=== PATIENT | female | born 1985 | race Caucasian/White ===

== ENCOUNTER 2016-07-02 13:29 | Emergency (ER) | payer MEDICAID ==
[2016-07-02 14:40] LABS: BASOPHILS 0.4 % (0-2); EOSINOPHILS 1.1 % (0-7); HEMATOCRIT 41.4 % (36.0-48.0); HEMOGLOBIN 13.4 g/dL (12-16); IMMATURE GRANULOCYTES 0.2 % (0-5); LYMPHOCYTES 19.7 % (15-50); MCH 31.2 pg (26.0-34.0); MCHC 32.4 g/dL (31.0-37.0); MCV 96.3 fL (80.0-100.0); MEAN PLATELET VOLUME 9.5 fL (7.4-10.4); MONOCYTES 7.9 % (2-11); NEUTROPHILS 70.7 % (40-80); PLATELET COUNT 246 10x3/uL (130-400); RDW 14.4 % (11.5-14.5); WBC 8.5 10x3/uL (4.8-10.8)
[2016-07-02 14:48] LABS: HCG SERUM NEGATIVE (NEGATIVE)
[2016-07-02 15:12] LABS: APPEARANCE CLEAR (CLEAR); BILIRUBIN NEGATIVE (NEGATIVE); COLOR YELLOW (YELLOW); GLUCOSE NEGATIVE (NEGATIVE); KETONE NEGATIVE (NEGATIVE); LEUKOCYTE ESTERASE TRACE (NEGATIVE); NITRITE NEGATIVE (NEGATIVE); PROTEIN NEGATIVE (NEGATIVE); SPECIFIC GRAVITY 1.015 (1.005-1.020); UROBILINOGEN NORMAL (NORMAL)
[2016-07-02 15:17] LABS: BACTERIA FEW /hpf (NONE SEEN); EPITHELIAL CELLS 0-5 /hpf (0-5); RED CELLS - URINE OCC /hpf (0-5)
[2016-07-02 15:18] LABS: UDS - AMPHET NEGATIVE QUAL (NEGATIVE); UDS - BARB NEGATIVE QUAL (NEGATIVE); UDS - BENZO NEGATIVE QUAL (NEGATIVE); UDS - COCAINE NEGATIVE QUAL (NEGATIVE); UDS - METH NEGATIVE QUAL (NEGATIVE); UDS - OPIATE NEGATIVE QUAL (NEGATIVE); UDS - PCP NEGATIVE QUAL (NEGATIVE); UDS - THC POSITIVE QUAL (NEGATIVE)
[2016-07-02 15:45] LABS: ALBUMIN 3.5 g/dL (3.4-5.0); ALKALINE PHOSPHATASE 90 U/L (46-116); ALT (SGPT) 17 U/L (10-68); BILIRUBIN - TOTAL 0.63 mg/dL (0.2-1.3); CALC OSMOLALITY 282 mosm/kg (275-300); CALCIUM 9.2 mg/dL (8.5-10.1); CARBON DIOXIDE 28.8 mmol/L (21.0-32.0); CHLORIDE - SERUM 107 mmol/L (98-107); CREATININE - SERUM 0.9 mg/dL (0.6-1.3); GLUCOSE 96 mg/dL (74-106); POTASSIUM - SERUM 4.8 mmol/L (3.5-5.1); PROTEIN - SERUM 6.5 g/dL (6.4-8.2); SODIUM 142 mmol/L (136-145); UREA NITROGEN 12 mg/dL (7-18); eGFR NON AFRICAN AMERICAN 76 mL/min (90-120)
== END 2016-07-03 00:50 | disposition home or self-care (01) ==
LOC: D.ER 13:29
PROVIDERS: Emergency Medicine
DX: R45.851 Suicidal ideations (principal); F32.9 Major depressive disorder, single episode, unspecified; F20.9 Schizophrenia, unspecified

== ENCOUNTER 2016-11-15 09:55 | Emergency (ER) | payer MEDICAID ==
[2016-11-15 11:00] LABS: APPEARANCE HAZY (CLEAR); COLOR ORANGE (YELLOW)
[2016-11-15 11:01] LABS: BILIRUBIN NEGATIVE (NEGATIVE); GLUCOSE NEGATIVE (NEGATIVE); KETONE NEGATIVE (NEGATIVE); LEUKOCYTE ESTERASE 1+ (NEGATIVE); NITRITE POSITIVE (NEGATIVE); PROTEIN NEGATIVE (NEGATIVE); SPECIFIC GRAVITY 1.005 (1.005-1.020); UROBILINOGEN NORMAL (NORMAL)
[2016-11-15 11:02] LABS: BACTERIA FEW /hpf (NONE SEEN); EPITHELIAL CELLS 0-5 /hpf (0-5); RED CELLS - URINE 0-5 /hpf (0-5); YEAST <1+ /hpf (NONE SEEN)
== END 2016-11-15 11:30 | disposition home or self-care (01) ==
LOC: D.ER 09:55
PROVIDERS: Emergency Medicine
DX: N39.0 Urinary tract infection, site not specified (principal); F17.200 Nicotine dependence, unspecified, uncomplicated

== ENCOUNTER 2017-03-14 21:08 | Emergency (ER) | payer MEDICAID ==
[2017-03-14 21:52] LABS: BASOPHILS 0.5 % (0-2); EOSINOPHILS 1.9 % (0-7); HEMATOCRIT 37.6 % (36.0-48.0); HEMOGLOBIN 12.2 g/dL (12-16); IMMATURE GRANULOCYTES 0.1 % (0-5); LYMPHOCYTES 31.4 % (15-50); MCH 31.9 pg (26.0-34.0); MCHC 32.4 g/dL (31.0-37.0); MCV 98.2 fL (80.0-100.0); MEAN PLATELET VOLUME 9.1 fL (7.4-10.4); MONOCYTES 9.9 % (2-11); NEUTROPHILS 56.2 % (40-80); PLATELET COUNT 249 10x3/uL (130-400); RBC 3.83 10x6/uL (4.00-5.40); RDW 12.7 % (11.5-14.5); WBC 7.8 10x3/uL (4.8-10.8)
[2017-03-14 22:06] LABS: ALBUMIN 3.5 g/dL (3.4-5.0); ALKALINE PHOSPHATASE 75 U/L (46-116); ALT (SGPT) 28 U/L (10-68); BILIRUBIN - TOTAL 0.59 mg/dL (0.2-1.3); CALC OSMOLALITY 283 mosm/kg (275-300); CALCIUM 9.2 mg/dL (8.5-10.1); CARBON DIOXIDE 27.6 mmol/L (21.0-32.0); CHLORIDE - SERUM 107 mmol/L (98-107); CREATININE - SERUM 0.8 mg/dL (0.6-1.3); GLUCOSE 97 mg/dL (74-106); POTASSIUM - SERUM 3.8 mmol/L (3.5-5.1); PROTEIN - SERUM 6.3 g/dL (6.4-8.2); SODIUM 142 mmol/L (136-145); UREA NITROGEN 16 mg/dL (7-18); eGFR NON AFRICAN AMERICAN 87 mL/min (90-120)
== END 2017-03-14 22:34 | disposition home or self-care (01) ==
LOC: D.ER 21:08
PROVIDERS: Nurse Practitioner Family
DX: L02.414 Cutaneous abscess of left upper limb (principal); R60.0 Localized edema; F15.20 Other stimulant dependence, uncomplicated; F20.89 Other schizophrenia; F17.200 Nicotine dependence, unspecified, uncomplicated

== ENCOUNTER 2017-04-01 06:13 | Emergency (ER) | payer SELFPAY ==
[2017-04-01 06:41] LABS: HCG URINE NEGATIVE (NEGATIVE)
[2017-04-01 06:47] LABS: UDS - AMPHET POSITIVE QUAL (NEGATIVE); UDS - BARB NEGATIVE QUAL (NEGATIVE); UDS - BENZO NEGATIVE QUAL (NEGATIVE); UDS - COCAINE NEGATIVE QUAL (NEGATIVE); UDS - OPIATE NEGATIVE QUAL (NEGATIVE); UDS - PCP NEGATIVE QUAL (NEGATIVE); UDS - THC POSITIVE QUAL (NEGATIVE)
[2017-04-01 06:48] LABS: BASOPHILS 0.3 % (0-2); EOSINOPHILS 1.5 % (0-7); HEMATOCRIT 38.5 % (36.0-48.0); HEMOGLOBIN 12.8 g/dL (12-16); IMMATURE GRANULOCYTES 0.2 % (0-5); LYMPHOCYTES 26.6 % (15-50); MCH 32.1 pg (26.0-34.0); MCHC 33.2 g/dL (31.0-37.0); MCV 96.5 fL (80.0-100.0); MEAN PLATELET VOLUME 8.9 fL (7.4-10.4); MONOCYTES 13.8 % (2-11); NEUTROPHILS 57.6 % (40-80); PLATELET COUNT 238 10x3/uL (130-400); RBC 3.99 10x6/uL (4.00-5.40); RDW 12.8 % (11.5-14.5); WBC 6.5 10x3/uL (4.8-10.8)
[2017-04-01 07:09] LABS: ALKALINE PHOSPHATASE 86 U/L (46-116); ALT (SGPT) 39 U/L (10-68); BILIRUBIN - TOTAL 0.71 mg/dL (0.2-1.3); CALC OSMOLALITY 281 mosm/kg (275-300); CALCIUM 9.1 mg/dL (8.5-10.1); CARBON DIOXIDE 26.8 mmol/L (21.0-32.0); CHLORIDE - SERUM 106 mmol/L (98-107); CREATININE - SERUM 0.9 mg/dL (0.6-1.3); GLUCOSE 79 mg/dL (74-106); POTASSIUM - SERUM 4.1 mmol/L (3.5-5.1); SODIUM 141 mmol/L (136-145); UREA NITROGEN 18 mg/dL (7-18); eGFR NON AFRICAN AMERICAN 76 mL/min (90-120)
[2017-04-01 07:26] LABS: APPEARANCE HAZY (CLEAR); BACTERIA FEW /hpf (NONE SEEN); BILIRUBIN NEGATIVE (NEGATIVE); COLOR YELLOW (YELLOW); EPITHELIAL CELLS 0-5 /hpf (0-5); GLUCOSE NEGATIVE (NEGATIVE); KETONE NEGATIVE (NEGATIVE); MUCUS >1+ /lpf (NONE SEEN); NITRITE NEGATIVE (NEGATIVE); PROTEIN NEGATIVE (NEGATIVE); RED CELLS - URINE OCC /hpf (0-5); SPECIFIC GRAVITY 1.015 (1.005-1.020); UROBILINOGEN NORMAL (NORMAL); WHITE CELLS - URINE OCC /hpf (0-5)
== END 2017-04-01 16:43 | disposition short-term general hospital (02) ==
LOC: D.ER 06:13
PROVIDERS: Family Medicine
DX: R45.851 Suicidal ideations (principal); F33.9 Major depressive disorder, recurrent, unspecified; F19.10 Other psychoactive substance abuse, uncomplicated; F17.200 Nicotine dependence, unspecified, uncomplicated; Z86.59 Personal history of other mental and behavioral disorders

== ENCOUNTER 2017-04-07 09:47 | Emergency (ER) | payer MEDICARE | END 2017-04-07 12:03 | disposition home or self-care (01) | LOC: D.ER 09:47 | DX: H10.31 Unspecified acute conjunctivitis, right eye (principal); F17.200 Nicotine dependence, unspecified, uncomplicated ==

== ENCOUNTER 2017-04-26 14:54 | Emergency (ER) | payer SELFPAY | END 2017-04-26 17:56 | disposition home or self-care (01) | LOC: D.ER 14:54 | DX: L03.116 Cellulitis of left lower limb (principal); F17.200 Nicotine dependence, unspecified, uncomplicated ==

== ENCOUNTER 2017-05-05 14:05 | Emergency (ER) | payer SELFPAY | END 2017-05-05 16:18 | disposition home or self-care (01) | LOC: D.ER 14:05 | DX: Z86.59 Personal history of other mental and behavioral disorders (principal); F42.9 Obsessive-compulsive disorder, unspecified; F17.200 Nicotine dependence, unspecified, uncomplicated ==

== ENCOUNTER 2017-05-16 21:01 | Emergency (ER) | payer SELFPAY | END 2017-05-16 21:41 | disposition home or self-care (01) | LOC: D.ER 21:01 | DX: L03.116 Cellulitis of left lower limb (principal); F42.9 Obsessive-compulsive disorder, unspecified; F17.200 Nicotine dependence, unspecified, uncomplicated ==

== ENCOUNTER 2017-05-26 18:07 | Emergency (ER) | payer SELFPAY ==
[2017-05-26 19:22] LABS: BASOPHILS 0.3 % (0-2); EOSINOPHILS 0.2 % (0-7); HEMATOCRIT 37.6 % (36.0-48.0); HEMOGLOBIN 12.9 g/dL (12-16); IMMATURE GRANULOCYTES 0.1 % (0-5); LYMPHOCYTES 23.1 % (15-50); MCH 32.1 pg (26.0-34.0); MCHC 34.3 g/dL (31.0-37.0); MCV 93.5 fL (80.0-100.0); MEAN PLATELET VOLUME 9.5 fL (7.4-10.4); MONOCYTES 12.4 % (2-11); NEUTROPHILS 63.9 % (40-80); PLATELET COUNT 265 10x3/uL (130-400); RBC 4.02 10x6/uL (4.00-5.40); RDW 12.6 % (11.5-14.5); WBC 9.4 10x3/uL (4.8-10.8)
[2017-05-26 19:30] LABS: ALBUMIN 4.4 g/dL (3.4-5.0); ANION GAP 14.2 mmol/L (8-16); BILIRUBIN - TOTAL 1.6 mg/dL (0.2-1.3); CALCIUM 9.7 mg/dL (8.5-10.1); CARBON DIOXIDE 23.9 mmol/L (21.0-32.0); POTASSIUM - SERUM 4.1 mmol/L (3.5-5.1); PROTEIN - SERUM 7.8 g/dL (6.4-8.2)
[2017-05-26 19:33] LABS: HCG SERUM NEGATIVE (NEGATIVE)
[2017-05-26 19:44] LABS: APPEARANCE TURBID (CLEAR); BILIRUBIN NEGATIVE (NEGATIVE); COLOR YELLOW (YELLOW); GLUCOSE NEGATIVE (NEGATIVE); KETONE MODERATE mg/dL (NEGATIVE); NITRITE NEGATIVE (NEGATIVE); PROTEIN NEGATIVE (NEGATIVE); SPECIFIC GRAVITY 1.025 (1.005-1.020); UDS - AMPHET POSITIVE QUAL (NEGATIVE); UDS - BARB NEGATIVE QUAL (NEGATIVE); UDS - BENZO NEGATIVE QUAL (NEGATIVE); UDS - COCAINE NEGATIVE QUAL (NEGATIVE); UDS - OPIATE NEGATIVE QUAL (NEGATIVE); UDS - PCP NEGATIVE QUAL (NEGATIVE); UDS - THC POSITIVE QUAL (NEGATIVE); UROBILINOGEN NORMAL (NORMAL)
[2017-05-26 19:48] LABS: AMORPHOUS SEDIMENT >1+ /lpf (NONE SEEN); BACTERIA FEW /hpf (NONE SEEN); RED CELLS - URINE OCC /hpf (0-5); WHITE CELLS - URINE OCC /hpf (0-5)
== END 2017-05-27 00:53 | disposition home or self-care (01) ==
LOC: D.ER 18:07
PROVIDERS: Family Medicine; Nurse Practitioner Family
DX: T43.622A Poisoning by amphetamines, intentional self-harm, initial encounter (principal); Y92.89 Other specified places as the place of occurrence of the external cause; Z86.59 Personal history of other mental and behavioral disorders; F17.200 Nicotine dependence, unspecified, uncomplicated

== ENCOUNTER 2017-06-12 12:51 | Emergency (ER) | payer MEDICARE | END 2017-06-12 15:20 | disposition home or self-care (01) | LOC: D.ER 12:51 | DX: S00.33XA Contusion of nose, initial encounter (principal); Y04.2XXA Assault by strike against or bumped into by another person, initial encounter; Y93.89 Activity, other specified; Y92.9 Unspecified place or not applicable; Z86.59 Personal history of other mental and behavioral disorders ==

== ENCOUNTER 2017-07-08 20:34 | Emergency (ER) | payer MEDICARE | END 2017-07-08 23:59 | disposition home or self-care (01) | LOC: D.ER 20:34 | DX: M79.1 Myalgia (principal); Y04.2XXA Assault by strike against or bumped into by another person, initial encounter; Y93.89 Activity, other specified; Y92.019 Unspecified place in single-family (private) house as the place of occurrence of the external cause ==

== ENCOUNTER 2017-09-05 14:33 | Emergency (ER) | payer MEDICARE ==
[~2017-09-05] VITALS: Ht 172.7 cm; Wt 71.8 kg
[2017-09-05 14:40] VITALS: Ht 172.7 cm; Wt 71.8 kg
[2017-09-05] MEDS ORDERED: DOXYCYCLINE HY100 M2 PO (16:26)
[2017-09-05 16:56] VITALS: BP 105/61
== END 2017-09-05 16:57 | disposition home or self-care (01) ==
LOC: EDBD 14:33 → D.ER 14:33
DX: L02.01 Cutaneous abscess of face (principal); F17.200 Nicotine dependence, unspecified, uncomplicated

== ENCOUNTER 2017-11-24 21:44 | Emergency (ER) | payer MEDICARE ==
[~2017-11-24] VITALS: Ht 172.7 cm; Wt 104.5 kg
[~2017-11-24 21:44] MED LIST: DOXYCYCLINE HY100 M2 PO
[2017-11-24 21:54] VITALS: Ht 172.7 cm; Wt 104.5 kg
[2017-11-24 22:20] LABS: APPEARANCE HAZY (CLEAR); COLOR YELLOW (YELLOW)
[2017-11-24 22:21] LABS: BACTERIA FEW /hpf (NONE SEEN); BILIRUBIN NEGATIVE (NEGATIVE); EPITHELIAL CELLS 0-5 /hpf (0-5); GLUCOSE NEGATIVE (NEGATIVE); KETONE NEGATIVE (NEGATIVE); NITRITE NEGATIVE (NEGATIVE); PROTEIN NEGATIVE (NEGATIVE); RED CELLS - URINE 0-5 /hpf (0-5); SPECIFIC GRAVITY 1.025 (1.005-1.020); UROBILINOGEN NORMAL (NORMAL); WHITE CELLS - URINE OCC /hpf (0-5)
[2017-11-24 22:22] LABS: UDS - AMPHET POSITIVE QUAL (NEGATIVE); UDS - BARB NEGATIVE QUAL (NEGATIVE); UDS - BENZO POSITIVE QUAL (NEGATIVE); UDS - COCAINE NEGATIVE QUAL (NEGATIVE); UDS - OPIATE NEGATIVE QUAL (NEGATIVE); UDS - PCP NEGATIVE QUAL (NEGATIVE); UDS - THC POSITIVE QUAL (NEGATIVE)
[2017-11-24 22:42] LABS: BASOPHILS 0.5 % (0-2); EOSINOPHILS 2.3 % (0-7); HEMATOCRIT 39.4 % (36.0-48.0); HEMOGLOBIN 13.4 g/dL (12-16); IMMATURE GRANULOCYTES 0.1 % (0-5); LYMPHOCYTES 24.9 % (15-50); MCH 32.4 pg (26.0-34.0); MCV 95.2 fL (80.0-100.0); MEAN PLATELET VOLUME 9.4 fL (7.4-10.4); MONOCYTES 11.7 % (2-11); NEUTROPHILS 60.5 % (40-80); PLATELET COUNT 247 10x3/uL (130-400); RBC 4.14 10x6/uL (4.00-5.40); RDW 13.1 % (11.5-14.5); WBC 7.4 10x3/uL (4.8-10.8)
[2017-11-24 22:56] LABS: ALBUMIN 3.8 g/dL (3.4-5.0); ALKALINE PHOSPHATASE 83 U/L (46-116); ALT (SGPT) 24 U/L (10-68); BILIRUBIN - TOTAL 0.39 mg/dL (0.2-1.3); CALC OSMOLALITY 274 mosm/kg (275-300); CALCIUM 9.3 mg/dL (8.5-10.1); CARBON DIOXIDE 30.7 mmol/L (21.0-32.0); CHLORIDE - SERUM 104 mmol/L (98-107); CREATININE - SERUM 0.9 mg/dL (0.6-1.3); GLUCOSE 100 mg/dL (74-106); POTASSIUM - SERUM 4.2 mmol/L (3.5-5.1); PROTEIN - SERUM 7.1 g/dL (6.4-8.2); SODIUM 138 mmol/L (136-145); UREA NITROGEN 11 mg/dL (7-18); eGFR NON AFRICAN AMERICAN 76 mL/min (90-120)
[2017-11-24 23:05] LABS: THYROID STIMULATING HORMONE 0.28 uIU/mL (0.36-3.74)
[2017-11-25 02:35] VITALS: BP 137/91
== END 2017-11-25 02:36 | disposition other institution (70) ==
LOC: D.ER 21:44
PROVIDERS: Family Medicine
DX: F23 Brief psychotic disorder (principal); F19.10 Other psychoactive substance abuse, uncomplicated; Z86.59 Personal history of other mental and behavioral disorders; F17.200 Nicotine dependence, unspecified, uncomplicated

== ENCOUNTER 2018-01-11 23:47 | Emergency (ER) | payer MEDICARE ==
[~2018-01-11] VITALS: Ht 172.7 cm; Wt 75.0 kg
[2018-01-11 23:53] VITALS: Ht 172.7 cm; Wt 75.0 kg
[2018-01-11] MEDS ORDERED: KLONIPIN (23:54)
[2018-01-11] MEDS ORDERED: HALDOL (23:54)
[2018-01-11] MEDS ORDERED: COGENTIN (23:54)
[2018-01-11] MEDS ORDERED: DEPAKOTE (23:54)
[2018-01-12 00:50] LABS: HCG URINE NEGATIVE (NEGATIVE)
[2018-01-12 00:57] LABS: APPEARANCE CLEAR (CLEAR); BILIRUBIN NEGATIVE (NEGATIVE); COLOR YELLOW (YELLOW); GLUCOSE NEGATIVE (NEGATIVE); KETONE NEGATIVE (NEGATIVE); NITRITE NEGATIVE (NEGATIVE); PROTEIN TRACE mg/dL (NEGATIVE); UROBILINOGEN NORMAL (NORMAL)
[2018-01-12 01:00] LABS: EPITHELIAL CELLS 0-5 /hpf (0-5); RED CELLS - URINE 0-5 /hpf (0-5); WHITE CELLS - URINE 0-5 /hpf (0-5)
[2018-01-12 01:01] LABS: BACTERIA FEW /hpf (NONE SEEN)
[2018-01-12] MEDS ORDERED: FLAGYL500 MG PO (01:21)
[2018-01-12 01:39] VITALS: BP 132/91
[2018-01-16 16:07] LABS: CHLAMYDIA TRACHOMATIS, NAA Negative (Negative)
== END 2018-01-12 01:39 | disposition home or self-care (01) ==
LOC: D.ER 23:47
PROVIDERS: Family Medicine
DX: N76.0 Acute vaginitis (principal); B96.89 Other specified bacterial agents as the cause of diseases classified elsewhere; Z86.59 Personal history of other mental and behavioral disorders; F17.200 Nicotine dependence, unspecified, uncomplicated

== ENCOUNTER 2018-01-20 16:26 | Emergency (ER) | payer MEDICARE ==
[~2018-01-20] VITALS: Ht 172.7 cm; Wt 79.5 kg
[~2018-01-20 16:26] MED LIST changes: +COGENTIN; +DEPAKOTE; +FLAGYL500 MG PO; +HALDOL; +KLONIPIN
[2018-01-20 16:33] VITALS: BP 125/76; Ht 172.7 cm; Wt 79.5 kg
[2018-01-20 17:41] LABS: BASOPHILS 0.7 % (0-2); EOSINOPHILS 1.1 % (0-7); HEMATOCRIT 42.3 % (36.0-48.0); HEMOGLOBIN 14.2 g/dL (12-16); IMMATURE GRANULOCYTES 0.1 % (0-5); MCH 31.5 pg (26.0-34.0); MCHC 33.6 g/dL (31.0-37.0); MCV 93.8 fL (80.0-100.0); MEAN PLATELET VOLUME 9.3 fL (7.4-10.4); MONOCYTES 9.6 % (2-11); NEUTROPHILS 61.5 % (40-80); PLATELET COUNT 268 10x3/uL (130-400); RBC 4.51 10x6/uL (4.00-5.40); RDW 12.4 % (11.5-14.5)
== END 2018-01-20 19:05 | disposition left against medical advice (07) ==
LOC: D.ER 16:26
PROVIDERS: Emergency Medicine
DX: R05 Cough (principal)

== ENCOUNTER 2018-02-24 17:12 | Inpatient (IN) | payer MEDICARE ==
[~2018-02-24] VITALS: Ht 170.2 cm; Wt 82.0 kg
--- NOTE | 2018-02-24 17:29 | NUR ---
SPOKE WITH POISON CONTROL - RECOMMEND THAT WE USE CHARCOAL AT THE ER PROVIDER'S DISCRETION - HALDOL CAN CAUSE SEIZURES AND ARRYTHMIA WELL SEDATION IF SHE TOOK THE AMOUNT REPORTED.
[2018-02-24 17:49] LABS: UDS - AMPHET POSITIVE QUAL (NEGATIVE); UDS - BARB NEGATIVE QUAL (NEGATIVE); UDS - BENZO NEGATIVE QUAL (NEGATIVE); UDS - COCAINE NEGATIVE QUAL (NEGATIVE); UDS - OPIATE NEGATIVE QUAL (NEGATIVE); UDS - PCP NEGATIVE QUAL (NEGATIVE); UDS - THC POSITIVE QUAL (NEGATIVE)
[2018-02-24 17:59] LABS: BASOPHILS 0.3 % (0-2); EOSINOPHILS 1.5 % (0-7); HEMATOCRIT 43.5 % (36.0-48.0); HEMOGLOBIN 14.4 g/dL (12-16); IMMATURE GRANULOCYTES 0.1 % (0-5); LYMPHOCYTES 18.3 % (15-50); MCHC 33.1 g/dL (31.0-37.0); MCV 93.5 fL (80.0-100.0); MEAN PLATELET VOLUME 9.2 fL (7.4-10.4); MONOCYTES 5.8 % (2-11); PLATELET COUNT 266 10x3/uL (130-400); RBC 4.65 10x6/uL (4.00-5.40); RDW 12.6 % (11.5-14.5); WBC 7.5 10x3/uL (4.8-10.8)
[2018-02-24 18:25] LABS: ALBUMIN 3.8 g/dL (3.4-5.0); ALKALINE PHOSPHATASE 92 U/L (46-116); ALT (SGPT) 22 U/L (10-68); BILIRUBIN - TOTAL 0.72 mg/dL (0.2-1.3); CALC OSMOLALITY 275 mosm/kg (275-300); CALCIUM 9.3 mg/dL (8.5-10.1); CARBON DIOXIDE 27.1 mmol/L (21.0-32.0); CHLORIDE - SERUM 102 mmol/L (98-107); CREATININE - SERUM 0.8 mg/dL (0.6-1.3); GLUCOSE 79 mg/dL (74-106); POTASSIUM - SERUM 3.6 mmol/L (3.5-5.1); PROTEIN - SERUM 7.6 g/dL (6.4-8.2); SODIUM 138 mmol/L (136-145); UREA NITROGEN 14 mg/dL (7-18); eGFR NON AFRICAN AMERICAN 86 mL/min (90-120)
[2018-02-24 18:28] LABS: MAGNESIUM - SERUM 1.8 mg/dL (1.8-2.4)
[2018-02-24 18:39] LABS: APPEARANCE CLEAR (CLEAR); BILIRUBIN NEGATIVE (NEGATIVE); COLOR YELLOW (YELLOW); GLUCOSE NEGATIVE (NEGATIVE); KETONE NEGATIVE (NEGATIVE); NITRITE NEGATIVE (NEGATIVE); PROTEIN NEGATIVE (NEGATIVE); UROBILINOGEN NORMAL (NORMAL)
[2018-02-24 19:30] VITALS: BP 103/67
[2018-02-24 20:30] VITALS: BP 101/61
[2018-02-24 21:33] VITALS: BP 113/71; BMI 27.3
--- NOTE | 2018-02-24 21:50 | NUR ---
RECEIVED PT FROM THE ED. PT IS ALERT AND ORIENTED, COMPLAINS OF BEING "VERY SLEEPY". ANSWERS QUESTIONS APPROPRIATELY. DR ARAIZA PRESENT IN ROOM ASSESSING PT. INITIAL ASSESSMENT COMPLETED, SEE FLOWSHEET. NO SIGNS OF ACUTE DISTRESS. VSS. WILL CONTINUE TO MONITOR.
[2018-02-24 22:00] VITALS: BP 113/71
[2018-02-24 23:00] VITALS: BP 115/70
--- NOTE | 2018-02-24 23:15 | NUR ---
PT WOKE UP AND NEEDED TO USE THE BATHROOM. BEDSIDE COMMODE WAS PROVIDED. PT GAIT WAS STEADY, PT HAD NO COMPLIANTS WITH GETTING UP AND MOVING. REASSESSMENT COMPLETED AT THIS TIME. WILL CONTINUE TO MONITOR.
[2018-02-25] VITALS (23 sets, daily range): BP systolic 94–120; BP diastolic 52–85
--- NOTE | 2018-02-25 01:16 | NUR ---
PT IS RESTING IN BED WITH EYES CLOSED AT THIS TIME. NO ACUTE CHANGES NOTED. NO SIGNS OF ACUTE DISTRESS. WILL CONTINUE TO MONITOR.
--- NOTE | 2018-02-25 03:16 | NUR ---
PT RESTING IN BED WITH EYES CLOSED AT THIS TIME. REASSESSMENT COMPLETED, SEE FLOWSHEET. NO SIGNS OF ACUTE CHANGES. NO SIGNS OF ACUTE DISTRESS. WILL CONTINUE TO MONITOR.
[2018-02-25 04:13] LABS: BASOPHILS 0.5 % (0-2); EOSINOPHILS 2.5 % (0-7); HEMOGLOBIN 12.1 g/dL (12-16); LYMPHOCYTES 36.9 % (15-50); MCH 30.6 pg (26.0-34.0); MCHC 32.7 g/dL (31.0-37.0); MCV 93.4 fL (80.0-100.0); MEAN PLATELET VOLUME 9.2 fL (7.4-10.4); MONOCYTES 8.7 % (2-11); NEUTROPHILS 51.4 % (40-80); PLATELET COUNT 216 10x3/uL (130-400); RBC 3.96 10x6/uL (4.00-5.40); RDW 12.5 % (11.5-14.5); WBC 5.7 10x3/uL (4.8-10.8)
[2018-02-25 04:30] LABS: ALKALINE PHOSPHATASE 74 U/L (46-116); ALT (SGPT) 17 U/L (10-68); BILIRUBIN - TOTAL 0.78 mg/dL (0.2-1.3); CALCIUM 8.3 mg/dL (8.5-10.1); CARBON DIOXIDE 24.8 mmol/L (21.0-32.0); CHLORIDE - SERUM 107 mmol/L (98-107); CREATININE - SERUM 0.6 mg/dL (0.6-1.3); GLUCOSE 86 mg/dL (74-106); MAGNESIUM - SERUM 1.8 mg/dL (1.8-2.4); POTASSIUM - SERUM 3.9 mmol/L (3.5-5.1); PROTEIN - SERUM 5.8 g/dL (6.4-8.2); SODIUM 139 mmol/L (136-145); eGFR NON AFRICAN AMERICAN > 90 mL/min (90-120)
[2018-02-25 04:36] LABS: ALBUMIN 2.8 g/dL (3.4-5.0); CALC OSMOLALITY 275 mosm/kg (275-300); UREA NITROGEN 10 mg/dL (7-18)
--- NOTE | 2018-02-25 05:12 | NUR ---
PT IS RESTING IN BED WITH EYES CLOSED. NO ACUTE CHANGES NOTED. NO SIGNS OF ACUTE DISTRESS. WILL CONTINUE TO MONITOR.
--- NOTE | 2018-02-25 07:00 | NUR ---
PATIENT RESTING IN BED C CALL COHEN IN REACH. RESPIRATIONS EVEN AND UNLABORED. VSS. PT WAKES TO VOICE. ALERT AND ORIENTED WHEN WOKEN. NS INFUSING AT 125ML/HR VIA LEFT AC. NORMAL SINUS RHYTHM. WILL CONTINUE TO MONITOR.
--- NOTE | 2018-02-25 08:24 | NUR ---
WORKFORCE MANAGEMENT COORDINATORCLERK CASEY FAXED FACESHEET AND CONSULT TO DR. WEI.
--- NOTE | 2018-02-25 09:56 | NUR ---
PATIENT RESTING IN BED C CALL COHEN IN REACH. VSS. PT TOOK OFF BP CUFF. NURSE PLACED BACK ON. WILL CONTINUE TO MONITOR
--- NOTE | 2018-02-25 11:00 | NUR ---
POISON CONTROL CALLED TO CHECK ON PATIENT STATUS. UPDATED THAT PT IS ONLY BEING TREATED WITH NS AND VITAL SIGNS ARE STABLE.
--- NOTE | 2018-02-25 12:18 | NUR ---
SERVED PATIENTS LUNCH TRAY. ATE ABOUT 40 PERCENT THEN FELL BACK ASLEEP. VSS. NURSE MONITORING
--- NOTE | 2018-02-25 14:00 | NUR ---
PT RESTING IN BED C CALL OCHEN IN REACH. VSS. WILL CONTINUE TO MONITOR
--- NOTE | 2018-02-25 16:00 | NUR ---
PT RESTING IN BED C CALL COHEN IN REACH. VSS. WILL CONTINUE TO MONITOR
--- NOTE | 2018-02-25 18:00 | NUR ---
PT RESTING IN BED C CALL COHEN IN REACH. VSS. ATE 10% DINNER. WILL CONTINUE TO MONITOR
--- NOTE | 2018-02-25 19:30 | NUR ---
REPORT RECEIVED, CARE ASSUMED. INITIAL ASSESSMENT COMPLETED, SEE FLOWSHEET. NO ACUTE CHANGES NOTED. PT RESTING IN BED WITH EYES CLOSED AT THIS TIME. WILL CONTINUE TO MONITOR.
--- NOTE | 2018-02-25 21:10 | NUR ---
PT RESTING IN BED WITH EYES CLOSED AT THIS TIME. NO SIGNS OF ACUTE DISTRESS. WILL CONTINUE TO MONITOR.
--- NOTE | 2018-02-25 23:30 | NUR ---
PT RESTING IN BED WITH EYES CLOSED AT THIS TIME. REASSESSMENT COMPLETED, SEE FLOWSHEET. NO ACUTE CHANGES NOTED. NO SIGNS OF ACUTE DISTRESS. WILL CONTINUE TO MONITOR.
[2018-02-26] VITALS (18 sets, daily range): BP systolic 108–135; BP diastolic 74–95; Ht 170.2 cm; Wt 82.0 kg
--- NOTE | 2018-02-26 01:34 | NUR ---
PT RESTING IN BED QUIETLY WITH EYES CLOSED. NO CHANGES NOTED. NO SIGNS OF ACUTE DISTRESS. WILL CONTINUE TO MONITOR.
--- NOTE | 2018-02-26 03:40 | NUR ---
PT RESTING IN BED WITH EYES CLOSED. REASSESSMENT COMPLETED, SEE FLOWSHEET. NO ACUTE CHANGES NOTED. NO SIGNS OF ACUTE DISTRESS. VSS. WILL CONTINUE TO MONITOR.
--- NOTE | 2018-02-26 05:24 | NUR ---
PT RESTING IN BED WITH EYES CLOSED. NO SIGNS OF ACUTE DISTRESS. WILL CONTINUE TO MONITOR.
--- NOTE | 2018-02-26 07:00 | NUR ---
RECEIVED PATIENT AT THIS TIME. BEDSIDE SHIFT REPORT COMPLETE. SHIFT ASSSESSMENT COMPLETE PER FLOWSHEET. VSS, WILL CONTINUE TO MONITOR CLOSELY.
--- NOTE | 2018-02-26 09:15 | NUR ---
PT SLEEPING COMFORTABLY AT THIS TIME. CALL LIGHT WITHIN REACH AND SIDE RAILS ARE UPX2. VSS, WILL CONTINUE TO MONITOR CLOSELY.
[2018-02-26 09:19] LABS: BASOPHILS 0.4 % (0-2); EOSINOPHILS 2.6 % (0-7); HEMATOCRIT 36.8 % (36.0-48.0); MCH 30.3 pg (26.0-34.0); MCHC 32.6 g/dL (31.0-37.0); MCV 92.9 fL (80.0-100.0); MEAN PLATELET VOLUME 9.4 fL (7.4-10.4); MONOCYTES 10.3 % (2-11); NEUTROPHILS 54.7 % (40-80); RBC 3.96 10x6/uL (4.00-5.40); WBC 4.7 10x3/uL (4.8-10.8)
[2018-02-26 09:26] LABS: PLATELET COUNT 168 10x3/uL (130-400)
[2018-02-26 09:30] LABS: CALC OSMOLALITY 282 mosm/kg (275-300); CALCIUM 8.4 mg/dL (8.5-10.1); CARBON DIOXIDE 24.8 mmol/L (21.0-32.0); CHLORIDE - SERUM 108 mmol/L (98-107); CREATININE - SERUM 0.7 mg/dL (0.6-1.3); GLUCOSE 95 mg/dL (74-106); POTASSIUM - SERUM 3.8 mmol/L (3.5-5.1); SODIUM 142 mmol/L (136-145); UREA NITROGEN 12 mg/dL (7-18); eGFR NON AFRICAN AMERICAN > 90 mL/min (90-120)
--- NOTE | 2018-02-26 11:00 | NUR ---
REASSESSMENT COMPLETE PER FLOWSHEET. NO ACUTE CHANGES NOTED AT THIS TIME. VSS, WILL CONTINUE TO MONITOR CLOSELY.
--- NOTE | 2018-02-26 12:30 | NUR ---
PT INFORMATION SENT TO [facility] TO FIND INPATIENT PSYCH PLACEMENT FOR PATIENT. PT PREFERS [facility]. ENGINE REPAIRER PRODUCTION UPDATED. VSS, WILL CONTINUE TO MONITOR.
--- NOTE | 2018-02-26 15:00 | NUR ---
REASSESSMENT COMPLETE PER FLOWSHEET. NO ACUTE CHANGES NOTED. VSS, WILL CONTINUE TO MONITOR CLOSELY.
--- NOTE | 2018-02-26 16:45 | NUR ---
BED AVAILABLE FOR TRANSFER IN [facility]. WILL INFORM PATIENT AND FILL OUT PAPERWORK.
--- NOTE | 2018-02-26 17:00 | NUR ---
REPORT CALLED TO DANIEL MCBRIDE AT [facility].
--- NOTE | 2018-02-26 17:15 | NUR ---
PATIENT PERIPHERAL IV REMOVED. CATHETER TIP INTACT AND PRESSURE HELD TO SITE. NO BLEEDING NOTED.
--- NOTE | 2018-02-26 17:34 | NUR ---
PT DEPARTED ICU WITH [facility] AT THIS TIME TO DEPART TO [facility]. ALL PATIENT BELONGINGS SENT WITH PATIENT (AYDEN AND ANTONIETA).
--- NOTE | 2018-02-26 18:10 | MORECARE ---
CASE MANAGEMENT DISCHARGE SUMMARY PATIENT: AMI BRINK UNIT: [id number] ADM DATE: 02/24/18 AGE: 33 : 81 SEX: F ROOM/BED: D.2305 AUTHOR: CHRISTINA RAYA PHYSICIAN: REFERRING PHYSICIAN: SPENCER ARAIZA MD DATE OF SERVICE: 02/26/18 Discharge Plan Patient Name: AMI BRINK Facility: [facility]:[place] : 1985 Planned Disposition: Psych facility Anticipated Discharge Date: Discharge Date: 02/26/2018 Expected LOS: Initial Reviewer: [email or web address] Initial Review Date: 02/26/2018 Generated: 02/26/18 7:09 pm External Providers External Provider: [facility] Next Contact Date: Service Request Date: Service Type: Resolution: Reviewer: Comments: Patient Name: AMI BRINK Page [id number] at 1810 All edits/amendments must be made on the electronic document DICTATION DATE: 02/26/181808 ASSOCIATE MANAGER: DM 02/26/181808 RPT#: [id number] DC DATE:02/26/18 STATUS: DIS IN [facility] [address] [place] [address] END OF REPORT
--- NOTE | 2018-02-26 18:18 | MORECARE ---
CASE MANAGEMENT DISCHARGE SUMMARY PATIENT: AMI BRINK UNIT: [id number] ADM DATE: 02/24/18 AGE: 33 : 81 SEX: F ROOM/BED: D.2305 AUTHOR: CHRISTINA RAYA PHYSICIAN: REFERRING PHYSICIAN: SPENCER ARAIZA MD DATE OF SERVICE: 02/26/18 Discharge Plan Patient Name: AMI BRINK Facility: [facility]:[place] : 1985 Planned Disposition: Psych facility Anticipated Discharge Date: Discharge Date: 02/26/2018 Expected LOS: Initial Reviewer: [email or web address] Initial Review Date: 02/26/2018 Generated: 02/26/18 7:18 pm Comments DCP- Discharge Planning Updated by [email or web address]: Almaz Taylor on 02/26/18 5:[address] Late Entry 02/26/17 @ 1015 Patient Name: AMI BRINK Admission Status: ER Accout number: [id number] Admission Date: 02-24-2018 : 1985 Admission Diagnosis:POISN BY BUTYROPHEN/THIOTHIXEN NEUROLEPTC, SELF-HARM, I Attending: SPENCER ARAIZA Current LOS: 2 Anticipated DC Date: Planned Disposition: Psych facility Primary Insurance: MEDICARE PART A ONLY Discharge Planning Comments: CM notified that patient was medically stable for inpatient psychiatric facility. CM met with patient at bedside to make sure she was voluntary to be admitted to psychiatric facility. Patient requested [facility] for facility of choice. CM contacted [facility] and faxed records. CM will continue to follow and assist with discharge planning / needs. Masonry Installer: Almaz Taylor Last DP export: 02/26/18 5:09 pm Patient Name: AMI BRINK Page [id number] at 1818 All edits/amendments must be made on the electronic document DICTATION DATE: 02/26/181817 PADDING MACHINE OPERATOR: ITZ 02/26/181817 RPT#: [id number] DC DATE:02/26/18 STATUS: DIS IN [id number] [place] [address] END OF REPORT
--- NOTE | 2018-02-27 12:34 | CN ---
PATIENT NAME:AMI BRINK MEDICAL RECORD: [id number] : 81 LOCATION:STEFFI.2305 ADMIT DATE: 02/24/18 ACCOUNT: [id number] CONSULTING PHYSICIAN: ANTOLIN WEI MD REFERRING PHYSICIAN: SPENCER ARAIZA MD DATE OF CONSULTATION: 02/25/2018 PSYCHIATRIC CONSULTATION IDENTIFYING DATA: The patient is 33 years old and she is admitted to the hospital on a voluntary basis. CHIEF COMPLAINT: Overdose. HISTORY OF PRESENT ILLNESS: The patient has a known history of mental illness and apparently carries several psychiatric diagnoses including bipolar disorder, schizoaffective disorder, posttraumatic stress disorder, and borderline personality disorder. She apparently had a fight with her boyfriend and decided to kill herself. She took 50 mg of Haldol orally along with 10 mg of Cogentin. The medications are prescribed for her. She is drowsy, but arousable in the intensive care unit. She tells me she did this with full intention of killing herself and says that she still does not want to live. She denies auditory and visual hallucinations. ASSESSMENT: 1. Status post overdose. 2. Bipolar disorder. PLAN: At this time, the patient is still acutely dangerous. She had a full belief that the number of pills she took would kill her. She still is expressing a desire to . She has a known history of mental illness that is extensive with numerous hospitalizations and extensive outpatient treatment. It is my recommendation that once she is medically stable, she will be transferred to inpatient psychiatric care. TRANSINT:[id number] Voice Confirmation ID: [id number] DOCUMENT ID: [id number] ANTOLIN WEI MD at 1234 CC: [id number] DICTATION DATE: 02/25/18 1513 LAMINATING MACHINE OPERATOR HELPER: 02/25/18 1634 DIS IN 02/26/18 [id number] [place] [address]
== END 2018-02-26 17:40 | disposition short-term general hospital (02) | DRG 918 ==
LOC: D.ER 17:12 → OBSVTIME 19:08 → D.EDHOLD 19:08 → D.ICU 19:40
PROVIDERS: Family Medicine; ADMIT Internal Medicine Nephrology
DX: T43.4X2A Poisoning by butyrophenone and thiothixene neuroleptics, intentional self-harm, initial encounter (principal); F17.203 Nicotine dependence unspecified, with withdrawal; R45.851 Suicidal ideations; T50.992A Poisoning by other drugs, medicaments and biological substances, intentional self-harm, initial encounter; F31.9 Bipolar disorder, unspecified; F43.10 Post-traumatic stress disorder, unspecified; F60.3 Borderline personality disorder; F25.9 Schizoaffective disorder, unspecified; T44.3X2A Poisoning by other parasympatholytics [anticholinergics and antimuscarinics] and spasmolytics, intentional self-harm, initial encounter

== ENCOUNTER 2018-04-05 00:24 | Emergency (ER) | payer SELFPAY ==
[~2018-04-05] VITALS: Ht 170.2 cm; Wt 61.8 kg
[2018-04-05 00:31] VITALS: Ht 170.2 cm; Wt 61.8 kg
[2018-04-05] MEDS ORDERED: MINOCYCLINE HCL75 M1 PO (01:24)
[2018-04-05] MEDS ORDERED: VOLTAREN75 MG PO (01:24)
[2018-04-05 01:37] VITALS: BP 132/79
== END 2018-04-05 01:37 | disposition home or self-care (01) ==
LOC: D.ER 00:24
DX: S62.601A Fracture of unspecified phalanx of left index finger, initial encounter for closed fracture (principal); W22.8XXA Striking against or struck by other objects, initial encounter; Y93.89 Activity, other specified; Y92.019 Unspecified place in single-family (private) house as the place of occurrence of the external cause; L03.012 Cellulitis of left finger

== ENCOUNTER 2018-06-05 15:15 | Emergency (ER) | payer MEDICARE ==
[~2018-06-05 15:15] MED LIST changes: +MINOCYCLINE HCL75 M1 PO; +VOLTAREN75 MG PO
[2018-06-05] MEDS ORDERED: SPORANOX100 MG PO (16:42)
== END 2018-06-05 17:03 | disposition home or self-care (01) ==
LOC: D.ER 15:15
DX: B35.0 Tinea barbae and tinea capitis (principal)

== ENCOUNTER 2018-06-22 04:34 | Emergency (ER) | payer MEDICAID ==
[~2018-06-22] VITALS: Ht 170.2 cm; Wt 80.9 kg
[~2018-06-22 04:34] MED LIST changes: +SPORANOX100 MG PO
[2018-06-22 04:39] VITALS: Ht 170.2 cm; Wt 80.9 kg
[2018-06-22 05:27] VITALS: BP 120/71
== END 2018-06-22 05:27 | disposition home or self-care (01) ==
LOC: D.ER 04:34
DX: J06.9 Acute upper respiratory infection, unspecified (principal)

== ENCOUNTER 2018-07-04 09:11 | Emergency (ER) | payer MEDICAID ==
[2018-07-04 09:13] VITALS: BMI 27.9
[2018-07-04 10:09] VITALS: BP 141/85
[2018-07-04] MEDS ORDERED: SEROQUEL300 MG PO (20:41)
[2018-07-04] MEDS ORDERED: CELEXA10 MG (20:42)
[2018-07-04] MEDS ORDERED: BENZTROPINE ME0.5 MG (20:42)
[2018-07-04] MEDS ORDERED: HALDOL5 MG (20:42)
[2018-07-04] MEDS ORDERED: BUTALB-APAP-CA1 EACH PO (21:13)
[2018-07-04] MEDS ORDERED: VIBRAMYCIN 100100 MG PO (21:54)
== END 2018-07-04 10:10 | disposition home or self-care (01) ==
LOC: D.ER 09:11
DX: G43.009 Migraine without aura, not intractable, without status migrainosus (principal)

== ENCOUNTER 2018-07-04 20:36 | Emergency (ER) | payer MEDICAID ==
[2018-07-04 20:39] VITALS: BMI 27.9
[2018-07-04] MEDS ORDERED: SEROQUEL300 MG PO (20:41)
[2018-07-04] MEDS ORDERED: CELEXA10 MG (20:42)
[2018-07-04] MEDS ORDERED: HALDOL5 MG (20:42)
[2018-07-04] MEDS ORDERED: BENZTROPINE ME0.5 MG (20:42)
[2018-07-04] MEDS ORDERED: BUTALB-APAP-CA1 EACH PO (21:13)
[2018-07-04] MEDS ORDERED: VIBRAMYCIN 100100 MG PO (21:54)
[2018-07-04 22:23] VITALS: BP 144/89
== END 2018-07-04 22:23 | disposition home or self-care (01) ==
LOC: D.ER 20:36
DX: G43.909 Migraine, unspecified, not intractable, without status migrainosus (principal); J01.90 Acute sinusitis, unspecified

== ENCOUNTER 2018-08-30 19:57 | Emergency (ER) | payer MEDICARE ==
[~2018-08-30] VITALS: Ht 170.2 cm; Wt 81.0 kg
[~2018-08-30 19:57] MED LIST changes: +BENZTROPINE ME0.5 MG; +BUTALB-APAP-CA1 EACH PO; +CELEXA10 MG; +HALDOL5 MG; +SEROQUEL300 MG PO; +VIBRAMYCIN 100100 MG PO
[2018-08-30 20:03] VITALS: Ht 170.2 cm; Wt 81.0 kg
[2018-08-30 20:22] LABS: APPEARANCE HAZY (CLEAR); BILIRUBIN NEGATIVE (NEGATIVE); COLOR YELLOW (YELLOW); GLUCOSE NEGATIVE (NEGATIVE); KETONE NEGATIVE (NEGATIVE); NITRITE NEGATIVE (NEGATIVE); PROTEIN NEGATIVE (NEGATIVE); SPECIFIC GRAVITY 1.015 (1.005-1.020); UROBILINOGEN NORMAL (NORMAL)
[2018-08-30 20:23] LABS: BACTERIA MODERATE /hpf (NONE SEEN); RED CELLS - URINE OCC /hpf (0-5); WHITE CELLS - URINE 0-5 /hpf (0-5)
[2018-08-30 20:24] LABS: HCG URINE NEGATIVE (NEGATIVE); MUCUS <1+ /lpf (NONE SEEN)
[2018-08-30 20:29] LABS: UDS - AMPHET POSITIVE QUAL (NEGATIVE); UDS - BARB NEGATIVE QUAL (NEGATIVE); UDS - BENZO NEGATIVE QUAL (NEGATIVE); UDS - COCAINE NEGATIVE QUAL (NEGATIVE); UDS - OPIATE NEGATIVE QUAL (NEGATIVE); UDS - PCP NEGATIVE QUAL (NEGATIVE); UDS - THC POSITIVE QUAL (NEGATIVE)
[2018-08-30 21:10] LABS: BASOPHILS 0.5 % (0-2); EOSINOPHILS 2.2 % (0-7); HEMATOCRIT 38.3 % (36.0-48.0); HEMOGLOBIN 12.8 g/dL (12-16); IMMATURE GRANULOCYTES 0.2 % (0-5); LYMPHOCYTES 28.6 % (15-50); MCH 31.4 pg (26.0-34.0); MCHC 33.4 g/dL (31.0-37.0); MCV 94.1 fL (80.0-100.0); MEAN PLATELET VOLUME 9.4 fL (7.4-10.4); MONOCYTES 7.1 % (2-11); NEUTROPHILS 61.4 % (40-80); PLATELET COUNT 244 10x3/uL (130-400); RBC 4.07 10x6/uL (4.00-5.40); RDW 12.8 % (11.5-14.5); WBC 6.5 10x3/uL (4.8-10.8)
[2018-08-30] MEDS ORDERED: SEROQUEL300 MG PO (21:15)
[2018-08-30] MEDS ORDERED: BENZTROPINE MESY1 MG PO (21:15)
[2018-08-30] MEDS ORDERED: HALDOL5 MG PO (21:15)
[2018-08-30 21:20] LABS: ALBUMIN 2.9 g/dL (3.4-5.0); ALKALINE PHOSPHATASE 82 U/L (46-116); ALT (SGPT) 24 U/L (10-68); CALC OSMOLALITY 281 mosm/kg (275-300); CALCIUM 8.6 mg/dL (8.5-10.1); CHLORIDE - SERUM 107 mmol/L (98-107); CREATININE - SERUM 0.8 mg/dL (0.6-1.3); GLUCOSE 101 mg/dL (74-106); MAGNESIUM - SERUM 1.8 mg/dL (1.8-2.4); POTASSIUM - SERUM 3.8 mmol/L (3.5-5.1); PROTEIN - SERUM 5.7 g/dL (6.4-8.2); SODIUM 142 mmol/L (136-145); UREA NITROGEN 10 mg/dL (7-18); eGFR NON AFRICAN AMERICAN 86 mL/min (90-120)
--- NOTE | 2018-08-30 21:22 | NUR ---
DR WEI NOTIFIED AND SITTER ORDERED. SITTER AT BEDSIDE. NOTIFIED CHARGE NURSE AND ATTENDING IN REGARDS TO ASSESSMENT FINDINGS. RESOURCES GIVEN TO PT AND SAFETY PLAN INITIATED.
[2018-08-30 21:24] VITALS: BP 123/76
== END 2018-08-30 21:24 | disposition home or self-care (01) ==
LOC: D.ER 19:57
PROVIDERS: Family Medicine
DX: Z91.14 Patient's other noncompliance with medication regimen (principal); F32.9 Major depressive disorder, single episode, unspecified; F15.10 Other stimulant abuse, uncomplicated

== ENCOUNTER 2018-10-18 13:57 | Emergency (ER) | payer MEDICARE ==
[~2018-10-18] VITALS: Ht 170.2 cm; Wt 68.2 kg
[~2018-10-18 13:57] MED LIST changes: +BENZTROPINE MESY1 MG PO; +HALDOL5 MG PO
[2018-10-18 14:00] VITALS: Ht 170.2 cm; Wt 68.2 kg
[2018-10-18 14:25] LABS: APPEARANCE CLEAR (CLEAR); BILIRUBIN NEGATIVE (NEGATIVE); COLOR YELLOW (YELLOW); GLUCOSE NEGATIVE (NEGATIVE); KETONE NEGATIVE (NEGATIVE); NITRITE NEGATIVE (NEGATIVE); PROTEIN NEGATIVE (NEGATIVE); UROBILINOGEN NORMAL (NORMAL)
--- NOTE | 2018-10-18 15:13 | NUR ---
DR. WEI NOTIFIED AND REVIEWED PT'S BEHAVIOR AND ASSESSMENT RESULTS. PT IS A LOW RISK PER DR. WEI. DR. DIAS STATED TO GIVE RESOURCES TO PT AT TIME OF DISCHARGE. NO FURTHER ORDERS AT THIS TIME. RESOURCES REVIEWED WITH PT AND SHE VERBALIZED UNDERSTANDING. PT WAS DISCHARGED FROM [facility] 3 DAYS AGO. PT IS CURRENTLY NOT SUICIDAL AT THIS TIME. PT REPORTS " I WENT TO [facility] FOR MEDICATIONS TO BE REFILLED." PT. DENIES ANY SI AT THIS TIME. PT IS BEING TREATED FOR BIPOLAR, PTSD, BPD, AND SCHIZOAFFECTIVE.
[2018-10-18 17:36] LABS: HCG URINE NEGATIVE (NEGATIVE)
[2018-10-18] MEDS ORDERED: FLAGYL500 MG PO (17:36)
[2018-10-18 18:32] VITALS: BP 129/72
== END 2018-10-18 18:32 | disposition home or self-care (01) ==
LOC: D.ER 13:57
PROVIDERS: Emergency Medicine
DX: N76.0 Acute vaginitis (principal); B96.89 Other specified bacterial agents as the cause of diseases classified elsewhere; N94.10 Unspecified dyspareunia

== ENCOUNTER 2019-01-15 03:49 | Emergency (ER) | payer MEDICARE ==
[~2019-01-15] VITALS: Ht 170.2 cm; Wt 81.8 kg
[2019-01-15 03:55] VITALS: Ht 170.2 cm; Wt 81.8 kg
[2019-01-15] MEDS ORDERED: CLEOCIN HCL300 MG PO (04:14)
[2019-01-15] MEDS ORDERED: NAPROSYN500 MG PO (04:14)
[2019-01-15 04:33] VITALS: BP 140/86
== END 2019-01-15 04:33 | disposition home or self-care (01) ==
LOC: D.ER 03:49
DX: K04.7 Periapical abscess without sinus (principal)

== ENCOUNTER 2019-04-28 12:17 | Emergency (ER) | payer MEDICARE ==
[~2019-04-28] VITALS: Ht 167.6 cm; Wt 79.5 kg
[~2019-04-28 12:17] MED LIST changes: +CLEOCIN HCL300 MG PO; +DIFLUCAN100 MG PO; +NAPROSYN500 MG PO; +SMZ-TMP DS TABL1 TAB PO
[2019-04-28 12:22] VITALS: BP 150/92; Ht 167.6 cm; Wt 79.5 kg
[2019-04-28 13:00] LABS: BASOPHILS 0.4 % (0-2); EOSINOPHILS 0 % (0-7); HEMOGLOBIN 14.3 g/dL (12-16); IMMATURE GRANULOCYTES 0.3 % (0-5); LYMPHOCYTES 12.3 % (15-50); MEAN PLATELET VOLUME 8.7 fL (7.4-10.4); RBC 4.47 10x6/uL (4.00-5.40); RDW 12.5 % (11.5-14.5); WBC 10.7 10x3/uL (4.8-10.8)
[2019-04-28 13:04] LABS: HCG URINE NEGATIVE (NEGATIVE)
[2019-04-28 13:09] LABS: UDS - AMPHET POSITIVE QUAL (NEGATIVE); UDS - BARB NEGATIVE QUAL (NEGATIVE); UDS - BENZO NEGATIVE QUAL (NEGATIVE); UDS - COCAINE NEGATIVE QUAL (NEGATIVE); UDS - OPIATE NEGATIVE QUAL (NEGATIVE); UDS - PCP NEGATIVE QUAL (NEGATIVE); UDS - THC POSITIVE QUAL (NEGATIVE)
[2019-04-28 13:14] LABS: PLATELET COUNT 308 10x3/uL (130-400)
[2019-04-28 13:15] LABS: ANION GAP 14.5 mmol/L (8-16); CALCIUM 9.1 mg/dL (8.5-10.1); CARBON DIOXIDE 24.7 mmol/L (21.0-32.0); POTASSIUM - SERUM 4.2 mmol/L (3.5-5.1)
[2019-04-28 13:27] LABS: ALBUMIN 4.3 g/dL (3.4-5.0); BILIRUBIN - TOTAL 0.84 mg/dL (0.2-1.3); PROTEIN - SERUM 7.6 g/dL (6.4-8.2)
[2019-04-28 13:51] LABS: SPECIFIC GRAVITY 1.025 (1.005-1.020)
[2019-04-28 13:52] LABS: BILIRUBIN NEGATIVE (NEGATIVE); GLUCOSE NEGATIVE (NEGATIVE); KETONE NEGATIVE (NEGATIVE); NITRITE NEGATIVE (NEGATIVE); UROBILINOGEN NORMAL (NORMAL)
--- NOTE | 2019-04-28 14:05 | NUR ---
DR WEI NOTIFIED AND REVIEWED PT'S BEHAVIOR AND ASSESSMENT RESULTS. PT IS A MODERATE RISK. PATIENT REFUSED TO FINISH THE ASSESSMENT TOWARDS THE END AND REFUSED TO COMPLETE SAFETY PLAN. SITTER ORDERED AND AT BEDSIDE. RESOURCES GIVEN AND SHE VERBALIZES UNDERSTANDING.
== END 2019-04-28 18:20 ==
LOC: D.ER 12:17
PROVIDERS: Family Medicine
DX: F15.90 Other stimulant use, unspecified, uncomplicated (principal); F41.9 Anxiety disorder, unspecified; R45.851 Suicidal ideations

== ENCOUNTER 2019-06-13 20:41 | Emergency (ER) | payer SELFPAY ==
[2019-04-28 12:22] VITALS: BMI 28.3
== END 2019-06-13 22:00 | disposition left against medical advice (07) ==
LOC: D.ER 20:41
DX: L02.91 Cutaneous abscess, unspecified (principal)